=== PATIENT | female | born 1990 | race Caucasian/White ===

== ENCOUNTER 2017-12-30 15:31 | Emergency (ER) | payer SELFPAY, OTHER | END 2017-12-30 17:55 | disposition home or self-care (01) | LOC: FTE 15:31 → E/R 17:55 | DX: R05 Cough (principal) | CPT/HCPCS: 71045; 99283-25 ==

== ENCOUNTER 2018-12-30 10:30 | Emergency (ER) | payer MEDICAID ==
[2018-12-30] MEDS: SOD CHLORIDE 0.9% 1,000 ML IV (11:52)
[2018-12-30] MEDS: METHYLPREDNISOLONE 125 MG INJ IV (11:52)
[2018-12-30] MEDS: KETOROLAC 15 MG INJ IV (11:52)
[2018-12-30] MEDS: ACETAMINOPHEN 160 MG/5ML CUP PO (11:53)
[2018-12-30] MEDS: CEFTRIAXONE 2 GM/50 ML (PMX) 50 ML IVPB (12:16)
[2018-12-30] MEDS: morphine 2 MG INJ IV (13:08)
== END 2018-12-30 14:18 | disposition home or self-care (01) ==
LOC: FTE 10:30
DX: K11.20 Sialoadenitis, unspecified (principal)
CPT/HCPCS: 81025; 96374; 96375; 99284-25

== ENCOUNTER 2019-01-01 12:39 | Emergency (ER) | payer MEDICAID ==
[2019-01-01 14:29] LABS: ADD MAN DIFF? NO
[2019-01-01 14:32] LABS: BASOPHILS % 0.4 % (0.0-2.0); EOSINOPHILS # 0.2 10^3/ul (0.0-0.5); EOSINOPHILS % 2.3 % (0.0-7.0); HEMATOCRIT 40.6 % (37.0-47.0); HEMOGLOBIN 13.6 g/dl (12.0-16.0); LYMPHOCYTES # 2.4 10^3/ul (0.8-2.9); LYMPHOCYTES % 28.1 % (15.0-51.0); MEAN CORPUSCULAR HEMOGLOBIN 28.3 pg (29.0-33.0); MEAN CORPUSCULAR HGB CONC 33.5 g/dl (32.0-37.0); MEAN CORPUSCULAR VOLUME 84.4 fl (82.0-101.0); MEAN PLATELET VOLUME 9.9 fl (7.4-10.4); MONOCYTE # 0.4 10^3/ul (0.3-0.9); NEUTROPHIL # 5.3 10^3/ul (1.6-7.5); NEUTROPHILS % 62.7 % (39.0-77.0); PLATELET COUNT 322 10^3/UL (140-415); RED BLOOD COUNT 4.81 10^6/ul (4.20-5.40)
[2019-01-01 14:32] LABS: WHITE BLOOD COUNT 8.5 10^3/ul (4.8-10.8)
[2019-01-01 14:50] LABS: ANION GAP 7 (5-13); BLOOD UREA NITROGEN 8 mg/dl (7-20); CALCIUM 10.1 mg/dl (8.4-10.2); CARBON DIOXIDE 33 mmol/L (21-31); CHLORIDE 99 mmol/L (97-110); CREATININE 0.62 mg/dl (0.44-1.00); Estimated GFR > 60 mL/min (>60); GLUCOSE 97 mg/dl (70-220); POTASSIUM 4.3 mmol/L (3.5-5.1); SODIUM 139 mmol/L (135-144)
[2019-01-01] MEDS ORDERED: HYDROCODONE/APAP (5/325) TAB PO (16:00)
[2019-01-01] MEDS: IOHEXOL 300MG/ML 150 ML BTL (16:09)
[2019-01-01] MEDS: SOD CHLORIDE 0.9% 100 ML (16:09)
[2019-01-01] MEDS: KETOROLAC 30 MG INJ IV (16:28)
== END 2019-01-01 17:27 | disposition home or self-care (01) ==
LOC: FTE 12:39
DX: K11.8 Other diseases of salivary glands (principal)
CPT/HCPCS: 70486; 80048; 81025; 84702; 85025; 96374; 99285-25

== ENCOUNTER 2019-03-01 14:42 | Emergency (ER) | payer MEDICAID | END 2019-03-01 17:36 | disposition home or self-care (01) | LOC: FTE 14:42 | DX: B34.9 Viral infection, unspecified (principal); F41.9 Anxiety disorder, unspecified | CPT/HCPCS: 71046; 81025; 93005; 99284-25 ==